=== PATIENT | male | born 1955 | race Two or more races ===

== ENCOUNTER → 2021-08-21 | Outpatient (CLI) | payer OTHER | END | disposition home or self-care (01) | LOC: Rad HDHVI 09:04 | PROVIDERS: ATTEND Internal Medicine Cardiovascular Disease | DX: I10 Essential (primary) hypertension (principal) | CPT/HCPCS: 93306 ==

== ENCOUNTER → 2021-08-26 | Outpatient (CLI) | payer OTHER ==
[~2021-08-26] VITALS: Ht 182.9 cm; Wt 86.2 kg
[~2021-08-26] MED LIST: ADENOSINE 72 MG in GIVE UN-DILUTED 0 ML IV ONE; ADENOSINE 90 MG/30 ML INJ IV ONE
== END | disposition home or self-care (01) ==
LOC: Rad HDHVI 08:54
PROVIDERS: ATTEND Internal Medicine Cardiovascular Disease
DX: J44.9 Chronic obstructive pulmonary disease, unspecified (principal); I10 Essential (primary) hypertension; E78.5 Hyperlipidemia, unspecified; R42 Dizziness and giddiness; Z82.49 Family history of ischemic heart disease and other diseases of the circulatory system
CPT/HCPCS: 78452; 93005; 96374; 96375; A9500; J0153

== ENCOUNTER → 2024-11-08 | Day surgery (SDC) | payer MEDICARE, MEDICAID ==
[~2024-11-08] VITALS: Ht 182.9 cm; Wt 70.3 kg
[~2024-11-08] MED LIST changes: -ADENOSINE 72 MG in GIVE UN-DILUTED 0 ML IV ONE; -ADENOSINE 90 MG/30 ML INJ IV ONE; +ATE50T PO; +CLON0.1T PO; +CYAN1TAB14 PO; +DULO20CA PO; +FENO145T27 PO; +FLUT1AER3 IN; +FOLI800T16 PO; +LIDOCAINE 2% (LOCAL ANESTH.) PF 5ml SDV ONE; +MAGN400T40 PO; +METO5TAB5 PO; +MORP15TA PO; +PANT40TA2 PO; +POTA-215 PO; +PROPOFOL 10 MG/ML 20 ML IV ONE; +TAMS-35 PO; +[UNRECOGNIZED DRUG - CODE] SC
[2024-11-08 08:23] VITALS: PULSE 58; RESP 13; TEMP 98; O2SAT 100
--- NOTE | 2024-11-08 08:24 | DVHHP2 ---
GI H&P Pre-Op Assessment Date: 11/08/24 Chief complaint: Estevez's esophagus HPI: per clinic note Past medical history: per clinic note Past surgical history: per clinic note Family history: per clinic note Physical exam: General: NAD, AAOX3 HEENT: PERRL, no scleral icterus, normal hearing, gums without lesions or bleeding, oropharynx clear without erythema or exudate. Neck: Supple without enlargement of the thyroid, or lymphadenopathy. Chest: Normal size and shape, no tenderness, lung molina clear to auscultation and percussion, nonlabored breathing. Heart: RRR, no murmur Abdomen: non-distended, no tenderness to palpation, +BS, no hepatosplenomegaly Extremities: no edema Neurological: CN II-XII intact, sensation intact in all extremities, 5+ strength in all extremities Skin: No rashes, No jaundice Assessment: - Estevez's esophagus Plan: - EGD - Risks (bleeding, infection, perforation, reaction to sedation medications and cardiopulmonary arrest) and benefit of the procedure were explained to patient. Patient agrees to undergo the procedure. DAVID MEHTA MD Nov 08, 2024 08:24
--- NOTE | 2024-11-08 08:26 | DVHDS2 ---
Physician Discharge Progress N Final Diagnosis: Normal EGD Operations or Procedures: Operations or Procedures EGD with cold biopsies Condition on Discharge: Good Disposition: Home Discharge Instructions: Diet: Regular Activity: No Restrictions, As Tolerated Medications: Resume previous home medications Follow Up Care: Discharge Statement: "Patient was advised to return to the ER or call 911 if any headaches, dizziness, shortness of breath, chest pain, abdominal pain, bleeding, fevers, or worsening of medical condition. Patient was counseled about treatment plan, medications, possible side effects, patientverbalized understanding. All questions were answered to the best of my ability. This discharge took greater then 30 minutes in planning, reviewing documentation, counseling the patient, and discussing with other team members." DAVID MEHTA MD Nov 08, 2024 08:26
--- NOTE | 2024-11-08 08:26 | DVHOP2 ---
Operative Report DATE OF OPERATION: 11/08/24 PROCEDURE: Upper Endoscopy. PREOPERATIVE INDICATION: The patient is a 69 -year-old male undergoing endoscopy for surveillance of Estevez's esophagus. POSTOPERATIVE DIAGNOSES: 1. Normal EGD. PROCEDURE PERFORMED BY: Christos Garza SCOPE: Olympus videoendoscope. ASA CLASS: 3 PREOPERATIVE MEDICATIONS: MAC with Rodrigue PROCEDURE IN DETAIL: After obtaining an informed consent, the patient was placed on his back. The patient was then sedated with the above medications. A bite block was placed between his teeth. The endoscope was then passed through the oropharynx, into the esophagus, and through the stomach and pylorus up to the second and third part of the duodenum. The duodenum was normal in appearance. The stomach was normal in appearance. The GE junction was normal in appearance at 41 cm. GE junction biopsies were obtained with cold biopsy forceps to evaluate for Estevez's esophagus. The endoscope was then withdrawn. The patient tolerated the procedure well without difficulty. COMPLICATIONS : None SPECIMENS: GE junction biopsy DISPOSITION: D/C to home PLAN: 1. Await for biopsy result CHRISTOS GARZA MD Nov 08, 2024 08:26
[2024-11-08 08:30] VITALS: PULSE 54; RESP 15; O2SAT 100
[2024-11-08 09:00] VITALS: BP 101/65; PULSE 57; RESP 14; O2SAT 98
== END | disposition home or self-care (01) ==
LOC: GI 06:27
PROVIDERS: ATTEND Internal Medicine Gastroenterology
DX: K22.70 Barrett's esophagus without dysplasia (principal); K29.50 Unspecified chronic gastritis without bleeding; K31.A19 Gastric intestinal metaplasia without dysplasia, unspecified site; K21.00 Gastro-esophageal reflux disease with esophagitis, without bleeding; K80.80 Other cholelithiasis without obstruction; I10 Essential (primary) hypertension; E78.5 Hyperlipidemia, unspecified; N40.0 Benign prostatic hyperplasia without lower urinary tract symptoms; J44.9 Chronic obstructive pulmonary disease, unspecified; Z79.899 Other long term (current) drug therapy; Z98.890 Other specified postprocedural states; Z87.891 Personal history of nicotine dependence
CPT/HCPCS: 43239; 88305; 88312; 88342; J2003; J2704; J7030